=== PATIENT | female | born 1950 | race Caucasian/White ===

== ENCOUNTER → 2019-04-16 09:57 | Outpatient (CLI) | payer MEDICAID, SELFPAY ==
[2019-04-16 10:38] LABS: Absolute Lymphocyte Count 1.57 X10^3/uL (0.83-4.51); Absolute Neutrophil Count 5.2 X10^3/uL (2.0-7.7); Basophil# 0.08 X10^3/uL; Eosinophil# 0.19 X10^3/uL; Eosinophils% 2.5 % (0-5); Hemoglobin 13.4 g/dL (12.0-15.0); Lymphocyte # 1.57 X10^3/ul (4.0); Lymphocyte % 20.5 % (19-41); Mean Corp Hgb Conc 31.9 g/dL (32-36); Mean Corpuscular Hgb 29.8 pg (27.0-32.0); Mean Corpuscular Volume 93.5 fL (81-99); Monocyte# 0.62 X10^3/uL; Monocyte% 8.1 % (0-10); NRBC Flagged by Analyzer 0 % (0-5); Neutrophil # 5.16 X10^3/uL (2.7-7.7); Neutrophil % 67.6 % (47-70); Platelet Count 285 K/mm3 (150-450); RBC Distribution Width CV 13.3 % (11.6-14.6); RBC Distribution Width SD 45.6 fl (35.1-43.9); Red Blood Count 4.49 M/mm3 (4.2-5.4); White Blood Count 7.6 K/mm3 (4.4-11.0)
[2019-04-19 04:06] LABS: Alternaria alternata <0.10 kU/L (Class 0); Aspergillus fumigatus <0.10 kU/L (Class 0); Bahia Grass <0.10 kU/L (Class 0); Bermuda Grass <0.10 kU/L (Class 0); Bluegrass, Kentucky <0.10 kU/L (Class 0); Cat Hair/Dander, Standard <0.10 kU/L (Class 0); Cedar, Mountain <0.10 kU/L (Class 0); Cladosporium herbarum <0.10 kU/L (Class 0); Cockroach, American <0.10 kU/L (Class 0); D farinae Mite <0.10 kU/L (Class 0); D pteronyssinus <0.10 kU/L (Class 0); Dog Epithelia <0.10 kU/L (Class 0); Elm, American White <0.10 kU/L (Class 0); Hazelnut Tree <0.10 kU/L (Class 0); Hickory, White <0.10 kU/L (Class 0); Johnson Grass <0.10 kU/L (Class 0); Maple/Box Elder <0.10 kU/L (Class 0); Mucor racemosus <0.10 kU/L (Class 0); Mugwort <0.10 kU/L (Class 0); Mulberry, White <0.10 kU/L (Class 0); Oak, White <0.10 kU/L (Class 0); Penicillium chrysogen <0.10 kU/L (Class 0); Pigweed, Rough <0.10 kU/L (Class 0); Plantain, English <0.10 kU/L (Class 0); Ragweed, Short/Common <0.10 kU/L (Class 0); Sheep Sorrel(Dock) <0.10 kU/L (Class 0); Stemphylium herbarum <0.10 kU/L (Class 0); Sweet Gum <0.10 kU/L (Class 0); Sycamore, American <0.10 kU/L (Class 0)
[2019-04-19 09:32] LABS: Nettle <0.10 kU/L (Class 0)
== END ==
PROVIDERS: Family Provider Nurse Practitioner Primary Care; PCP Nurse Practitioner Primary Care; Referring Provider Internal Medicine Pulmonary Disease; Visit Provider Internal Medicine Pulmonary Disease
DX: J44.9 Chronic obstructive pulmonary disease, unspecified (principal); T78.40XA Allergy, unspecified, initial encounter
CPT/HCPCS: 36415; 85025; 86003

== ENCOUNTER → 2019-12-28 12:49 | Outpatient (CLI) | payer MEDICARE, SELFPAY ==
--- NOTE | 2019-12-28 12:53 | CT_ITS ---
STUDY: LOW DOSE CT LUNG CANCER SCREENING REASON FOR EXAM: Female, 69 years old. Tobacco use, 1PPD X 30 YRS. COPD RADIATION DOSAGE (If Supplied By Facility): CTDIvol = ( 3.02 ) mGy, DLP = ( 101.94 ) mGycm TECHNIQUE: No contrast was administered. Low dose technique was utilized (average mAS-38 and kVp 120). 1.25 mm axial source images with a slice interval of 1.25-mm were reconstructed in lung windows. 2.5 mm axial source images with a slice interval of 2.5-mm were reconstructed in lung windows. 5.0 mm axial source images with a slice interval of 5.0-mm were reconstructed in soft tissue windows. Nodule measured using lung windows on PACS and/or independent workstation with automated measurement of minimum and maximum diameter. Nodule measurement reported as average diameter rounded to the nearest whole number. Growth is defined as an increase ins size of greater than 1.5 mm. COMPARISON: None. NODULES: Tiny calcified granuloma in the right lung apex. There is a 1.2 cm x 1.3 cm x 1.3 cm A nodule in the superior segment of the left lower lobe. Biopsy is recommended. Emphysema: Emphysematous changes with small bullous formation in the upper lobes. Endobronchial lesion: None Aorta: Atherosclerotic calcific plaques at the level of the aortic arch. Coronary arteries: Coronary artery calcification. Other chest and abdominal findings: CT/Low Dose CT Lung Screening IMPRESSION: Lung-RADS category 4B - Chest CT with or without contrast, PET/CT and/or tissue sampling can be obtained depending on the probability of malignancy and comorbidities. IMPORTANT NOTES FOR USE: ACR Lung-RADS Version 1.0 Assessment Categories Release Date: August 08, 2013 Category: Coded 0-4 bases on nodule(s) with highest degree of suspicion. Negative screen is defined as categories 1 and 2; a positive screen is defined as categories 3 and 4. Category 3 and 4A nodules that are unchanged on interval CT should be coded as category 2, and individuals returned to screening in 12 months. Category 4X: Category 3 or 4 nodules with additional imaging findings that increase the suspicion of lung cancer, such as spiculation, GGN that doubles in size in 1 year, enlarged lymph notes, etc. Category Modifiers: S (significant finding unrelated to lung cancer) and C (prior history of treated lung cancer) may be added to the 0-4 Lung-RADS Electronically Signed: Daniel Ryder, at 13:42 EDT , Service support ,
== END ==
PROVIDERS: PCP Nurse Practitioner Primary Care; Referring Provider Internal Medicine Pulmonary Disease; Visit Provider Internal Medicine Pulmonary Disease
DX: Z12.2 Encounter for screening for malignant neoplasm of respiratory organs (principal); Z87.891 Personal history of nicotine dependence
CPT/HCPCS: G0297

== ENCOUNTER → 2020-03-27 09:06 | Outpatient (CLI) | payer MEDICARE, SELFPAY ==
[2020-03-22 20:09] LABS: QNTFERON TB Mitogen Value > 10.00 IU/mL (.); QNTFERON TB Nil Value 0.28 IU/mL (.); QNTFERON TB1+ Ag Value 0.26 IU/mL (.); QNTFERON TB2+ Ag Value 0.83 IU/mL (.)
[2020-03-23 06:16] LABS: QNTIFERON TB Positive Criteria Positive (Negative)
[2020-03-27] VITALS (12 sets, daily range): BP systolic 92–119; BP diastolic 64–84; PULSE 70–80; RESP 12–17; TEMP 36.7; O2SAT 92–98; BMI 24.7
--- NOTE | 2020-03-27 | IMM_PTH ---
PATIENT: DELVIN DOWNS LOC: CT U#:[id number] AGE/SX: 74/F ROOM: RE03/27/[address]: Dr. Aniceto Kong MD : 1950 BED: DIS: SPEC #: [id number] RECD: 03/28/20 13:13 STATUS: RUFINA REKayla #: [id number] PRUDENCE: 03/27/20 00:[address]: Aniceto Kong V DEPT: IMMUNOHISTOCHEMISTRY RECD BY: Mildred Chandra ENTERED: 03/28/20 13:15 SP TYPE: IMMUNO OTHR DR: Sparkle Hemphill, MOLECULAR SPECTROSCOPIST-C Tissues: Left lower lobe of lung, NOS Procedures: RCC (add) NAPSIN A (add) CK20 (add) CK5-6 (add) CK7 (add) CK8 (add) HEP PAR (add) VT (add) TTF1 (add) Pankeratin (add) P40 (add) ER (initial) PHYSICIAN & INSTITUTION [address] [address] SPECIMEN INFORMATION: Tissue Source: LLL nodule Clinical Info: LLL nodule Specimen Number: [id number] CPT code: 13903, 67719 x11 METHODOLOGY: Deparaffinized sections of prefer/formalin-fixed tissue or PAP/DQ stained slides are incubated with monoclonal/polyclonal antibodies/oligonucleotide probes. Localization is made via biotin free immunoperoxidase method. Appropriate controls are performed and reacted as expected. Results on target cell population are indicated in the following table: RESULTS: ANTIBODY / CLONE RESULT ER (6F11) negative VT (1E2) negative AE1-3 (AE1/AE3/PCK26) positive CK7 (OV-TL12/30) positive CK8 (65yksyQ60) positive CK20 (KS20.8) positive TTF-1 (8G7G3/1) positive Napsin A (Rabbit Polyclonal) positive HepPar (OCh1E5) negative RCC (PN-15) negative CK5-6 (D5 & 1684) positive, focal P40 (BC28) positive, focal These tests were developed and their performance characteristics determined by [facility]. They may not have been cleared or approved by the [place]. Food and Drug Administration. The FDA has determined that such clearance or approval is not necessary. The above immunohistochemical/dualISH markers are ordered and reviewed by the Pathologist. INTERPRETATION: LLL nodule, CT-guided core biopsy: Non-small cell carcinoma, favor adenosquamous carcinoma. SJ:dk 03/29/20 Case has been reviewed in consultation with Dr. Anna who concurs with the above diagnosis. IDC:AM
--- NOTE | 2020-03-27 | ASPIGT_PTH ---
PATIENT: DELVIN DOWNS LOC: CT U#:[id number] AGE/SX: 74/F ROOM: RE03/27/[address]: Dr. Aniceto Kong MD : 1950 BED: DIS: SPEC #: [id number] RECD: 03/27/20 11:00 STATUS: RUFINA ALEX #: [id number] PRUDENCE: 03/27/20 00:[address]: Aniceto Kong V DEPT: SURGICAL PATHOLOGY RECD BY: Rico Sotelo ENTERED: 03/27/20 11:01 SP TYPE: ASP RAD OTHR DR: Sparkle Hemphill, SUPERCHARGER MECHANIC-C Tissues: Bronchus of left lower lobe Procedures: FNA Specimen Adequacy Special Stain Group II Special Stain Group I Surgery Specimen Level IV AFB Stain (control) Imprint (control) HEADER OPERATION: CT-guided left lung biopsy PRE-OP DIAGNOSIS: LLL nodule TISSUE SUBMITTED: LLL nodule, CT-guided core biopsy MICROSCOPIC DIAGNOSIS LLL nodule, CT-guided core biopsy: Non-small cell carcinoma, favor adenosquamous carcinoma. See comment. EDE:dk 03/28/20 COMMENT The specimen is evaluated at the time of biopsy by Dr. Perez. Immediate Evaluation = Atypical cells, suspicious for malignancy noted. Immunohistochemistry ([id number]) supports the above diagnosis. Special stain for acid fast bacilli is negative for organisms; matched control is appropriate. Molecular studies on the tumor can be performed, if clinically indicted, please notify the laboratory if they are needed. Case has been reviewed in consultation with Dr. Anna who concurs with the above diagnosis. IDC:AM MICROSCOPIC DESCRIPTION Slides are reviewed. GROSS DESCRIPTION Received in fixative is one container labeled with the patient's name and designated LLL, CT-guided core biopsy. The specimen consists of multiple irregular fragments of light [place] soft tissue that in aggregate measure 1.5 x 0.1 x 0.1 cm. The specimen is totally submitted in one cassette. Two touch imprints are prepared at the time of core biopsy. / EDE:dk 03/27/20 TC:0 CPT: 03106, 02349, 35651
[2020-03-27 09:27] LABS: Prothrombin Time (Protime)PT. 12.3 SECONDS (11.7-14.9)
[2020-03-27 09:28] LABS: Partial Thromboplast Time 30.4 Seconds (24.1-36.2)
--- NOTE | 2020-03-27 10:04 | CT_ITS ---
PROCEDURE: CT GUIDED CORE NEEDLE BIOPSY OF A left lower lobe LUNG LESION INDICATION: Female, 69 years old. LLL LUNG NODULE BX. PHYSICIAN: Dr. MAGUI Dent CONSENT: Written informed consent was obtained having explained the risks, benefits and alternatives in detail with the patient who accepted the risks and agreed to proceed. Laboratory review and clinical assessment was performed. CONSCIOUS SEDATION PROTOCOL: The Drugs used were: 2 mg Versed, IV., and 50 mcg Fentanyl, IV. The sedation time was: 24 minutes. Conscious sedation was started at 10:11 AM and terminated at 1035 The conscious sedation protocol was independently monitored. RADIATION DOSAGE (If Supplied By Facility): CTDIvol = ( 17 ) mGy, DLP = ( 478.78 ) mGycm Individualized dose optimization techniques were used for this CT. TECHNIQUE: The patient was placed in the prone position. A noncontrast CT was performed to localize the lesion in the posterior aspect of the left lower lobe . The skin surface was prepped and draped in a sterile fashion. 1% lidocaine was used for local anesthesia. Using CT guidance, a 20-gauge coaxial biopsy device was advanced to the periphery of the lesion. A total of 4 core specimens were obtained. The specimens were placed in a formalin solution. A post procedure CT demonstrated no adverse sequelae or pneumothorax. The patient tolerated the procedure well without adverse event. A negative biopsy does not exclude malignancy. Further imaging or clinical followup based on patient condition and degree of clinical suspicion for malignancy. Suggest rebiopsy, if biopsy results do not match with clinical scenario. CT/Biopsy/Inj or Needle Placement IMPRESSION: 1. CT directed core needle biopsy of the left lower lobe pulmonary nodule using CT image guidance with image documentation as described. Pathology results are pending. 2. Conscious Sedation protocol utilized with independent monitoring. Electronically Signed: Daniel Ryder, at 12:30 EST , Service support ,
[2020-03-27] MEDS: Midazolam 2 MG/2 ML Syringe IV (10:10)
[2020-03-27] MEDS: fentaNYL 100 MCG/2 ML Ampul IV (10:11)
--- NOTE | 2020-03-27 10:15 | RAD_ITS ---
STUDY: X-RAY CHEST REASON FOR EXAM: Female, 69 years old. IMMEDIATE LEFT SIDE POST LUNG BX. INSPR/EXPR VWS TECHNIQUE: AP inspiration and expiration views. COMPARISON: None. FINDINGS: Immediate post left lung biopsy radiographs. No evidence of pneumothorax. RAD/Chest Insp/Exp 2 View IMPRESSION: Immediate post left lung biopsy radiographs. No evidence of pneumothorax. Electronically Signed: Daniel Ryder, at 13:12 EST , Service support ,
--- NOTE | 2020-03-27 12:15 | RAD_ITS ---
STUDY: X-RAY CHEST REASON FOR EXAM: Female, 69 years old. 2 HOUR POST LUNG BIOPSY TECHNIQUE: AP inspiration and expiration views. COMPARISON: Comparison is made with prior study done earlier today. FINDINGS: No evidence of pneumothorax on the two-hour delayed post left lung biopsy radiographs. RAD/Chest Insp/Exp 2 View IMPRESSION: No evidence of pneumothorax on the 2 hour delayed post left lung biopsy radiographs. Electronically Signed: Daniel Ryder, at 13:09 EST , Service support ,
[2020-03-29 20:07] LABS: QNTFERON TB Mitogen Value > 10.00 IU/mL (.); QNTFERON TB Nil Value 0.25 IU/mL (.); QNTFERON TB1+ Ag Value 0.93 IU/mL (.); QNTFERON TB2+ Ag Value 2.14 IU/mL (.)
[2020-03-29 22:45] LABS: QNTIFERON TB Positive Criteria Positive (Negative)
== END ==
PROVIDERS: PCP Nurse Practitioner Primary Care; Referring Provider Internal Medicine Pulmonary Disease; Visit Provider Internal Medicine Pulmonary Disease
DX: R91.1 Solitary pulmonary nodule (principal); C34.32 Malignant neoplasm of lower lobe, left bronchus or lung; R05 Cough; R06.02 Shortness of breath
CPT/HCPCS: 32405; 36415; 71046; 77012; 85610; 85730; 86480; 87015; 87116; 87206; 88172; 88305; 88312; 88313; 88341; 88342; 99155; 99156; J7040; A4216; C2613

== ENCOUNTER → 2020-11-01 11:24 | Outpatient (CLI) | payer MEDICARE, SELFPAY ==
[2020-03-27 09:34] VITALS: BMI 24.7
--- NOTE | 2020-11-01 11:26 | RAD_ITS ---
STUDY: X-RAY CHEST REASON FOR EXAM: Female, 69 years old. COPD/LUNG CANCER TECHNIQUE: PA and lateral views of the chest. COMPARISON: Comparison is made with prior examination dated 03/27/2020. FINDINGS: There is hyperinflation of the lungs consistent with chronic obstructive lung disease (COPD). Focal area of increased markings is seen in the left midlung. Surgical clips are seen in the left lower lobe. This may represent postoperative scarring. The patient received chemotherapy. There is no demonstrated pleural abnormality. Normal size heart. Normal mediastinum and arben. Normal visualized pulmonary arteries. Normal visualized aortic arch and descending thoracic aorta. Normal visualized thoracic spine. Normal visualized ribs, clavicles, and shoulders. There is no demonstrated abnormality of the visualized soft tissue structures of the upper abdomen. RAD/Chest PA and Lateral IMPRESSION: Hyperinflation. Increased markings are seen in the left midlung at the site of prior surgical intervention. This may represent postoperative scarring. Electronically Signed: Daniel Ryder MD at 14:50 EDT , Service support ,
== END ==
PROVIDERS: PCP Nurse Practitioner Primary Care; Referring Provider Internal Medicine Pulmonary Disease; Visit Provider Internal Medicine Pulmonary Disease
DX: J44.9 Chronic obstructive pulmonary disease, unspecified (principal); C34.90 Malignant neoplasm of unspecified part of unspecified bronchus or lung
CPT/HCPCS: 71046

== ENCOUNTER → 2021-01-31 14:51 | Outpatient (CLI) | payer MEDICARE, SELFPAY ==
[2021-01-31 15:15] LABS: Hematocrit 36.6 % (37-47); Hemoglobin 11.9 g/dL (12.0-15.0); Mean Corp Hgb Conc 32.5 g/dL (32-36); Mean Corpuscular Hgb 29.8 pg (27.0-32.0); Mean Corpuscular Volume 91.5 fL (81-99); Mean Platelet Vol. 9.7 fl (6.2-12.0); Platelet Count 294 K/mm3 (150-450); RBC Distribution Width CV 13.5 % (11.6-14.6); RBC Distribution Width SD 45.9 fl (35.1-43.9); White Blood Count 13.2 K/mm3 (4.4-11.0)
== END ==
PROVIDERS: PCP Nurse Practitioner Primary Care; Referring Provider Internal Medicine Pulmonary Disease; Visit Provider Internal Medicine Pulmonary Disease
DX: J44.9 Chronic obstructive pulmonary disease, unspecified (principal); C34.92 Malignant neoplasm of unspecified part of left bronchus or lung
CPT/HCPCS: 36415; 85027